=== PATIENT | female | born 1950 | race Caucasian/White ===

== ENCOUNTER 2017-12-31 13:09 | Emergency (ER) | payer BC ==
[2017-12-31] MEDS ORDERED: ACETAMINOPHEN 325 MG TAB PO ONE (13:58)
--- NOTE | 2017-12-31 14:17 | Emergency Department Record ---
History of Present Illness - General Chief complaint: Head Injury Stated complaint: FELL HIT HEAD IN TUB HIT HEAD 2 DAYS AGO/HEADACHES Time Seen by Provider: 12/31/17 13:55 Source: Patient Mode of Arrival: Ambulatory Limitations: No limitations - History of Present Illness Initial comments: The patient is here due to falling in the tub 2 days ago and injuring her R forehead and the area around her R eye. She had no LOC but has had a PAINTING and neck pain since. There has been no vomiting, diarrhea, visual changes or balance issues. MD Complaint: Head injury Onset/Timin -: Days(s) Mechanism of Injury: Other Location: Face Loss of Consciousness: No Place: Home Radiation: None Severity scale (1-10): 3 Quality: Aching Consistency: Constant - Related Data Allergies/Adverse reactions: Allergies Allergy/AdvReac Type Severity Reaction Status Date / Time cefaclor [From Ceclor] Allergy RASH Verified 12/31/17 14:13 cephalexin [From Keflex] Allergy ANAPHYLAXIS Verified 12/31/17 14:13 codeine Allergy RASH Verified 12/31/17 14:13 Penicillins Allergy RASH Verified 12/31/17 14:13 Tetracyclines Allergy RASH Verified 12/31/17 14:13 Travel Screening - Travel/Exposure Within Last 30 Days Have you traveled within the last 30 days?: No - Travel/Exposure Within Last Year Have you traveled outside the [place] in the last year?: No - Additonal Travel Details Have you been exposed to anyone with a communicable illness?: No - Travel Symptoms Symptom Screening: None Review of Systems Constitutional: Denies: Chills, Fever Eyes: Denies: Eye discharge ENT: Denies: Congestion Respiratory: Denies: Cough, Dyspnea Past Medical History - SOCIAL HISTORY Smoking Status: Never smoker Alcohol Use: None Drug Use: None - RESPIRATORY Hx Respiratory Disorders: Yes Hx Pneumonia: Yes - CARDIOVASCULAR Hx Cardio Disorders: Yes Hx Hypertension: Yes - NEURO Hx Neuro Disorders: Yes Hx Headaches: Yes - GI Hx GI Disorders: Yes Comment:: hernia - Hx Genitourinary Disorders: No - ENDOCRINE Hx Endocrine Disorders: Yes Hx Diabetes: No Hx Thyroid Disease: Yes - MUSCULOSKELETAL Hx Musculoskeletal Disorders: Yes Hx Arthritis: Yes - PSYCH Hx Psych Problems: No - HEMATOLOGY/ONCOLOGY Hx Hematology/Oncology Disorders: No Family Medical History Any Significant Family History?: No Physical Exam - General General Appearance: Alert, Oriented x3, Cooperative, No acute distress - Head Head exam: Normocephalic. negative: Atraumatic, Normal inspection Head exam detail: Contusion (around the R lateral eye with mild tenderness.). negative: Day's sign Image of Face/Head: 1 - Area of contusion. - Eye Eye exam: Normal appearance, PERRL, EOMI - Neck Neck exam: Normal inspection, Full ROM, Tenderness (There is mild posterior Cspine tenderness.) - Respiratory Respiratory exam: Normal lung sounds bilaterally. negative: Respiratory distress - Cardiovascular Cardiovascular Exam: Regular rate, Normal rhythm, Normal heart sounds - GI/Abdominal GI/Abdominal exam: Soft, Normal bowel sounds. negative: Tenderness - Extremities Extremities exam: Normal inspection, Full ROM, Normal capillary refill. negative: Tenderness - Back Back exam: Reports: Normal inspection - Neurological Neurological exam: Alert, Normal gait, Oriented X3, Other (Neg Drift and Rhomberg exams.). negative: Abnormal gait, Motor sensory deficit Course Vital Signs 12/31/17 13:39 Temperature 98.0 F Pulse Rate 89 Respiratory 16 Rate Blood Pressure 187/79 Pulse Ox 99 - Reevaluation(s) Reevaluation #1: The patient is doing very well at this time. I did discuss the neg xrays for any acute injury with the patient and the need for F/U if not better. She is to see her PCP Dr. Ray for further evaluation of the cervical issue that appears to be a chronic problem. 12/31/17 15:08 12/31/17 15:27 12/31/17 15:55 Medical Decision Making - Data Complexity MDM Data: X-Ray Ordered and/or Reviewed - Radiology Data Radiology results: Report reviewed (Head and Cervical CT: Neg for acute traumatic changes. There is a chronic calcified mass L side of C2-3. Etilogy ? per Rad. Not related to trauma.) Disposition Disposition: Discharge Clinical Impression: Facial contusion Qualifiers: Encounter type: initial encounter Qualified Code(s): S00.83XA - Contusion of other part of head, initial encounter Disposition: Home, Self-Care Condition: (2) Stable Instructions: Facial Contusion (ED) Additional Instructions: Please take Tylenol for pain and rest when possible. Please see your family doctor for recheck next week and for a probable MRI of the cervical area due to the calcified mass. Return to the ER for any worsening symptoms. Forms: Patient Portal Access Time of Disposition: 15:11 Quality - Quality Measures Quality Measures: Blunt Head Trauma (>2yr) - Blunt Head Trauma - Adult Quality Measure: Measure #415: Utilization of CT for Minor Blunt Head Trauma ICD10 Codes Entered: Yes View Details: Yes Was CT ordered: Yes Does Patient Have Any of the Following: Brain Tumor Patient Presented Within 24 Hours of Injury: No Bina Score: Please complete Bina Coma Scale above Utilization of CT for Minor Blunt Head Trauma: Patient Excluded [[id number]] Additional Inclusion Criteria: More than 24hrs (OR) GCS not 15 (OR) CT not ordered. Indications For CT: Age 65 Years and Older Not Eligible Reason: Injury Greater Than 24 Hours Ago - Blood Pressure Screening View Details: Yes Does Patient Have Any of the Following: No Blood Pressure Classification: Hypertensive Reading Systolic Measurement: 153 Diastolic Measurement: 57 Screening for High Blood Pressure: < Pre-Hypertensive BP, F/U Documented > [ [id number]] Pre-Hypertensive Follow-up Interventions: Referral to alternative/primary care provider.
--- NOTE | 2018-01-02 08:17 | CT SCAN REPORT ---
EXAM: CT SCAN CERVICAL SPINE WO CONTRAST HISTORY: PATIENT FELL IN THE TUB A COUPLE OF DAYS AGO WITH HEADACHE AND SORE NECK. TECHNIQUE: Axial CT scan of the entire cervical spine performed without IV contrast. COMPARISON: None. ENCOUNTER: Initial. FINDINGS: There is some opacification posteriorly in the left ethmoid and adjacent left maxillary sinus as noted in the head CT today. No apical pneumothorax is evident. 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 There is a somewhat unusual faintly peripherally calcified soft tissue density in the left side of the neck at the C3 level on the left at the level of the lamina and facets and extends toward the lateral aspect of the C3 foramen. On the sagittal reformatted series, this appears to measure up to approximately 3.1 cm in oblique craniocaudal dimension. As it extends back towards the facet articulation and foramen, this may be some form of unusual synovial cyst that is partially calcified. Again, because of its relationship extending towards the foramen, the possibility of some form of unusual nerve sheath tumor or even vertebral artery aneurysm would be in the differential although would seem less likely. Follow-up MRI is suggested for further evaluation. There is extensive facet joint arthropathy at multiple levels in the cervical spine and there appears to be fusion of the left C3-4 facet. Advanced degenerative change of the odontoid/anterior arch of C1 articulation. Narrowing particularly the fifth and sixth cervical interspaces with associated hypertrophic spurring. No definite fracture of the cervical spine identified and no prevertebral soft tissue swelling evident. Multilevel foraminal stenosis is evident. IMPRESSION: 1. NO DEFINITE FRACTURE OF THE CERVICAL SPINE IDENTIFIED. 2. ADVANCED DEGENERATIVE CHANGES AT MULTIPLE LEVELS OF THE CERVICAL SPINE. 3. UNUSUAL PERIPHERALLY CALCIFIED DENSITY ALONG THE POSTEROLATERAL ASPECT OF THE LEFT SIDE OF THE NECK AT THE APPROXIMATE C2-3 LEVEL, WHICH APPEARS TO EXTEND DOWN INTO THE LATERAL ASPECT OF THE LEFT C3 NEURAL FORAMEN. ETIOLOGY IS UNCERTAIN WITH POSSIBILITIES DESCRIBED ABOVE. FOLLOW-UP MRI SUGGESTED FOR FURTHER EVALUATION. JOB NUMBER: [id number] MTDD
--- NOTE | 2018-01-02 13:34 | CT SCAN REPORT ---
EXAM: CT SCAN HEAD WO CONTRAST HISTORY: PATIENT FELL IN BATHTUB TWO DAYS AGO. TECHNIQUE: Axial CT scan of the head performed without IV contrast. COMPARISON: None. ENCOUNTER: Initial. FINDINGS: No definite acute intracranial hemorrhage identified. No focal mass effect or midline shift apparent. Mild generalized atrophy is present with some mild chronic-appearing deep white matter changes, nonspecific but likely representing some chronic small vessel deep white matter ischemic disease. No definite acute infarct or intracranial mass lesion seen. Moderate membrane thickening posteriorly in the superior aspect of the left maxillary sinus and adjacent left ethmoid sinus. Probably a small cyst or polyp in the left side of the sphenoid sinus. No depressed calvarial fracture is evident. IMPRESSION: 1. NO DEFINITE ACUTE INTRACRANIAL HEMORRHAGE OR FOCAL MASS EFFECT IDENTIFIED. 2. MILD GENERALIZED ATROPHY WITH SOME CHRONIC-APPEARING DEEP WHITE MATTER CHANGES. 3. MILD OPACIFICATION IN SOME OF THE PARANASAL SINUSES DETAILED ABOVE. JOB NUMBER: [id number] MTDD
== END 2017-12-31 15:38 | disposition home or self-care (01) ==
LOC: ER 13:09
DX: S00.83XA Contusion of other part of head, initial encounter (principal); M54.2 Cervicalgia; R51 Headache; I10 Essential (primary) hypertension; W01.198A Fall on same level from slipping, tripping and stumbling with subsequent striking against other object, initial encounter; Y93.E1 Activity, personal bathing and showering; Y92.002 Bathroom of unspecified non-institutional (private) residence as the place of occurrence of the external cause
CPT/HCPCS: 70450; 72125; 99283; 99284